=== PATIENT | male | born 1940 | race Caucasian/White ===

== ENCOUNTER 2023-01-06 15:15 | Emergency (ER) | payer MEDICARE, OTHER ==
[~2023-01-06] VITALS: Ht 170.2 cm; Wt 81.6 kg
--- NOTE | 2023-01-06 17:05 | NUR ---
Pt did not want a sling.
--- NOTE | 2023-01-06 17:09 | NUR ---
Patient discharged to home in stable condition with family. Written and verbal after care instructions given. Patient verbalizes understanding of instructions. Stressed follow up or return to ER for worsening s/s.
== END 2023-01-06 17:27 | disposition home or self-care (01) ==
LOC: ER 15:15
DX: M25.511 Pain in right shoulder (principal); Z88.5 Allergy status to narcotic agent
CPT/HCPCS: 73030; A4663

== ENCOUNTER 2023-11-27 16:44 | Emergency (ER) | payer MEDICARE, OTHER ==
[~2023-11-27] VITALS: Ht 172.7 cm; Wt 79.4 kg
[2023-11-27] MEDS: LIDOCAINE HCL 1% 20 ML VIAL IJ ONE (17:00)
[2023-11-27] MEDS ORDERED: LIDOCAINE HCL 1% 20 ML VIAL ONE (17:04)
[2023-11-27] MEDS ORDERED: OXYCODONE/APAP 5-325 MG TABLET ONE (17:19)
[2023-11-27] MEDS: OXYCODONE/APAP 5-325 MG TABLET PO ONE (17:25)
[2023-11-27] MEDS ORDERED: HYDR-3976 PO (19:05)
[2023-11-27] MEDS ORDERED: CEPH500C2 PO (19:07)
[2023-11-27] MEDS: CEphaleXIN 500 MG CAPSULE PO ONE (19:17)
[2023-11-27 19:18] VITALS: BP 141/75; TEMP 98.2; O2SAT 97
[2023-11-27] MEDS ORDERED: CEphaleXIN 500 MG CAPSULE ONE (19:19)
== END 2023-11-27 19:27 | disposition home or self-care (01) ==
LOC: ER 16:46
DX: S62.522A Displaced fracture of distal phalanx of left thumb, initial encounter for closed fracture (principal); S01.81XA Laceration without foreign body of other part of head, initial encounter; S40.011A Contusion of right shoulder, initial encounter; S80.01XA Contusion of right knee, initial encounter; Z79.899 Other long term (current) drug therapy; Z88.5 Allergy status to narcotic agent; W01.0XXA Fall on same level from slipping, tripping and stumbling without subsequent striking against object, initial encounter; Y93.89 Activity, other specified; Y92.89 Other specified places as the place of occurrence of the external cause; Y99.8 Other external cause status
CPT/HCPCS: 12002; 12013; 29125; 70450; 72125; 73030; 73130; 73564; 99284; J3490; A4606; A4663

== ENCOUNTER 2023-11-29 12:02 | Emergency (ER) | payer MEDICARE, OTHER ==
[~2023-11-29] VITALS: Ht 172.7 cm; Wt 81.6 kg
[~2023-11-29 12:02] MED LIST: CEPH500C2 PO; HYDR-3976 PO
[2023-11-29] MEDS ORDERED: TRAMADOL HCL 50 MG TABLET ONE (12:28)
[2023-11-29] MEDS: TRAMADOL HCL 50 MG TABLET PO ONE (12:30)
[2023-11-29] MEDS ORDERED: TRAM50TA2 PO (12:46)
[2023-11-29 12:53] VITALS: BP 136/78; O2SAT 99
== END 2023-11-29 12:53 | disposition home or self-care (01) ==
LOC: ER 12:04
DX: S62.502A Fracture of unspecified phalanx of left thumb, initial encounter for closed fracture (principal); N40.0 Benign prostatic hyperplasia without lower urinary tract symptoms; Z79.899 Other long term (current) drug therapy; Z88.5 Allergy status to narcotic agent; W18.39XA Other fall on same level, initial encounter; Y93.89 Activity, other specified; Y92.89 Other specified places as the place of occurrence of the external cause; Y99.8 Other external cause status
CPT/HCPCS: A4606; A4663